=== PATIENT | female | born 1945 | race American Indian/Alaskan Native ===

== ENCOUNTER 2018-05-02 14:52 | Emergency (ER) | payer MEDICARE ==
--- NOTE | 2018-05-02 15:41 | C.PDOC ---
History Of Present Illness 72 years old female presents to ED for complaints of constant dizziness. Patient reports as she was to the bathroom earlier today she became dizzy and felt like the room was spinning. Patient also reports recent non-productive cough. Denies any other physical complaints. Time Seen by Provider: 05/02/18 15:07 Chief Complaint (Nursing): Dizziness/Lightheaded History Per: Patient History/Exam Limitations: no limitations Onset/Duration Of Symptoms: Hrs Current Symptoms Are (Timing): Still Present Associated Symptoms Preceding Syncopal Episode: No Predromal Symptoms (Sudden Onset) Seizure Or Post-ictal Symptoms: None Fall Associated With With Symptoms: No Recent travel outside of the [place]: No - Symptoms Of CVA Recent Aspirin Use: Unknown Current Coumadin Use?: Unknown Recent Head Trauma: No Past Medical History Reviewed: Historical Data, Nursing Documentation, Vital Signs Vital Signs: Last Vital Signs Temp 97.9 F 05/02/18 15:14 Pulse 69 05/02/18 15:01 Resp 14 05/02/18 15:01 BP 146/63 05/02/18 15:01 Pulse Ox 99 05/02/18 15:01 - Medical History PMH: HTN Family History: States: No Known Family Hx - Social History Hx Alcohol Use: No Hx Substance Use: No - Immunization History Hx Tetanus Toxoid Vaccination: No Hx Influenza Vaccination: No Hx Pneumococcal Vaccination: No Review Of Systems Except As Marked, All Systems Reviewed And Found Negative. Constitutional: Negative for: Fever, Chills Respiratory: Positive for: Cough (Non-productive ). Negative for: Shortness of Breath Gastrointestinal: Negative for: Nausea, Vomiting, Diarrhea Skin: Negative for: Rash Neurological: Negative for: Weakness, Numbness Physical Exam - Physical Exam Appears: Non-toxic, No Acute Distress Skin: Normal Color, Warm, Dry, No Rash Head: Atraumatic, Normacephalic Eye(s): bilateral: Other (Horizontal nystagmus) Oral Mucosa: Moist Throat: Normal, No Erythema, No Exudate, No Drooling Neck: Normal ROM, Supple Chest: Symmetrical, No Tenderness Cardiovascular: Rhythm Regular, No Murmur Respiratory: Normal Breath Sounds, No Rales, No Rhonchi, No Wheezing Gastrointestinal/Abdominal: Bowel Sounds (Active ), Soft, No Tenderness, No Guarding, No Rebound Back: Normal Inspection, No CVA Tenderness Extremity: Normal ROM Extremity: Bilateral: Atraumatic, Normal Color And Temperature, Normal ROM Pulses: Left Radial: Normal, Right Radial: Normal Neurological/Psych: Oriented x3, Normal Speech, Normal Motor, Normal Sensation, Normal Reflexes, Other (No focal deficits ) ED Course And Treatment - Laboratory Results Result Diagrams: 05/02/18 15:43 05/02/18 15:43 O2 Sat by Pulse Oximetry: 99 (RA) Pulse Ox Interpretation: Normal - CT Scan/US Head CT Other Rad Studies (CT/US): Read By Radiologist, Radiology Report Reviewed CT/US Interpretation: Date of service: 05/02/2018. PROCEDURE: CT HEAD WITHOUT CONTRAST. HISTORY: R/O Bleed. COMPARISON: None available. TECHNIQUE: Axial computed tomography images were obtained through the head/brain without int ravenous contrast. Radiation dose: Total exam DLP = 947.78 mGy-cm. This CT exam was performed using one or more of the following dose reduction techniques: Automated exposure control, adjustment of the mA and/or kV according to patient size, and/or use of iterative reconstruction technique. FINDINGS: HEMORRHAGE: The parenchymal, subarachnoid or extra-axial hemorrhage. BRAIN: Suspect minima l chronic periventricular white matter ischemic changes. There may also be a tiny lacunar type infarct versus artifact genu left internal capsule. Mild generalized volume loss. Mild vascular calcifications both carotid siphons. VENTRICLES: No obstructive hydrocephalus. CALVARIUM: No acute calvarial fractures. PARANASAL SINUSES: Unremarkable as visualized. No significant inflammatory changes. MASTOID AIR CELLS: Unremarkable as visualized. No inflammatory changes. OTHER FINDINGS: None. IMPRESSION: Suspect minimal chronic periventricular white matter ischemic changes. Questionable artifact versus tiny chronic lacunar-type infarct at the genu left internal capsule. Mild generalized volume loss. Medical Decision Making Medical Decision Making: Plan: * Anivert * EKG * Blood Work * Urine Culture * Urinalysis * CT Head EKG: * Normal sinus rhythm at 65 bpm * Q waves * No ST elevation 4:56PM: * Upon re-evaluation Dizziness has resolved. Patient complaints of mild headache. Disposition Counseled Patient/Family Regarding: Studies Performed, Diagnosis, Need For Followup, Rx Given - Disposition Referrals: Efrain Fontaine MD [Staff Provider] - Disposition: HOME/ ROUTINE Disposition Time: 17:04 Condition: STABLE Prescriptions: Acetaminophen [Tylenol] 325 mg PO TID #30 capsule Meclizine [Meclizine*] 25 mg PO Q6 #30 tab Instructions: Vertigo (a Type of Dizziness) (DC) Forms: [facility] ([place]an), General Discharge Instructions - POA Present On Arrival: None - Clinical Impression Clinical Impression: Dizziness - Scribe Statement The provider has reviewed the documentation as recorded by the Scribe Marisol Colón All medical record entries made by the Scribe were at my direction and personally dictated by me. I have reviewed the chart and agree that the record accurately reflects my personal performance of the history, physical exam, medical decision making, and the department course for this patient. I have also personally directed, reviewed, and agree with the discharge instructions and disposition.
[2018-05-02 15:48] LABS: BASO # 0.1 K/uL (0.0-0.2); BASO % 0.8 % (0.0-2.0); EOS # 0.1 K/uL (0.0-0.7); EOS % 0.8 % (0.0-4.0); HEMOGLOBIN 11.5 g/dL (11.0-16.0); LYMPH # 1.3 K/uL (1.0-4.3); LYMPH % 11.5 % (20.0-40.0); MEAN CELL VOLUME 89.4 fL (81.0-99.0); MEAN CORPUSCULAR HEMOGLOBIN 28.1 pg (27.0-31.0); MEAN CORPUSCULAR HGB CONC 31.4 g/dL (33.0-37.0); MEAN PLATELET VOLUME 8.1 fL (7.2-11.7); MONO # 0.5 K/uL (0.0-0.8); MONO % 4.5 % (0.0-10.0); NEUT # 9.1 K/uL (1.8-7.0); NEUT % 82.4 % (50.0-75.0); RBC 4.09 Mil/uL (3.80-5.20); RED CELL DISTRIBUTION WIDTH 14.4 % (11.5-14.5)
[2018-05-02 16:20] LABS: ALB/GLOB RATIO 1.2 (1.0-2.1); ALBUMIN 4.8 g/dL (3.5-5.0); ALT/SGPT < 6 U/L (9-52); AST/SGOT 42 U/L (14-36); BLOOD UREA NITROGEN 37 mg/dL (7-17); CALCIUM 9.6 mg/dl (8.6-10.4); GFR NON-AFRICAN AMERICAN 25
--- NOTE | 2018-05-02 16:56 | CT ---
Date of service: 05/02/2018 PROCEDURE: CT HEAD WITHOUT CONTRAST. HISTORY: R/O Bleed COMPARISON: None available. TECHNIQUE: Axial computed tomography images were obtained through the head/brain without intravenous contrast. Radiation dose: Total exam DLP = 947.78 mGy-cm. This CT exam was performed using one or more of the following dose reduction techniques: Automated exposure control, adjustment of the mA and/or kV according to patient size, and/or use of iterative reconstruction technique. FINDINGS: HEMORRHAGE: The parenchymal, subarachnoid or extra-axial hemorrhage. BRAIN: Suspect minimal chronic periventricular white matter ischemic changes. There may also be a tiny lacunar type infarct versus artifact genu left internal capsule. Mild generalized volume loss. Mild vascular calcifications both carotid siphons VENTRICLES: No obstructive hydrocephalus. CALVARIUM: No acute calvarial fractures. PARANASAL SINUSES: Unremarkable as visualized. No significant inflammatory changes. MASTOID AIR CELLS: Unremarkable as visualized. No inflammatory changes. OTHER FINDINGS: None. IMPRESSION: Suspect minimal chronic periventricular white matter ischemic changes. Questionable artifact versus tiny chronic lacunar-type infarct at the genu left internal capsule. Mild generalized volume loss.
[2018-05-02 18:08] VITALS: BP 136/74; PULSE 71; RESP 20; TEMP 98.6; O2SAT 100
--- NOTE | 2018-05-03 19:49 | CARD ---
APPROVED REPORT Date of service: 05/02/2018 EKG Measurement Heart [id number] <Conclusion> Normal sinus rhythm Low voltage QRS Septal infarct, age undetermined Abnormal ECG
== END 2018-05-02 18:09 | disposition home or self-care (01) ==
LOC: C.ER 14:52
DX: R42 Dizziness and giddiness (principal); I10 Essential (primary) hypertension

== ENCOUNTER 2018-05-25 10:40 | Outpatient (CLI) | payer MEDICARE | END 2018-05-25 10:41 | disposition home or self-care (01) | LOC: C.LAB 10:40 | DX: N18.3 Chronic kidney disease, stage 3 (moderate) (principal) ==

== ENCOUNTER 2018-06-04 10:11 | Outpatient (CLI) | payer MEDICARE | END 2018-06-04 10:12 | disposition home or self-care (01) | LOC: C.CTH 10:11 | DX: N18.3 Chronic kidney disease, stage 3 (moderate) (principal) ==

== ENCOUNTER 2018-06-10 10:34 | Outpatient (CLI) | payer MEDICARE | END 2018-06-10 10:35 | disposition home or self-care (01) | LOC: C.LAB 10:34 | DX: N18.3 Chronic kidney disease, stage 3 (moderate) (principal) ==